=== PATIENT | female | born 1950 | race Caucasian/White ===

== ENCOUNTER → 2017-03-09 | Day surgery (SDC) | payer MEDICARE ==
[~2017-03-09] VITALS: Ht 160 cm; Wt 65.0 kg
[~2017-03-09] MED LIST: ACETAMINOPHEN 325 MG TAB PO PRN; CHLORHEXIDINE GLUCONATE 2 % 1 PACK (2 CLOTHS) TOPICAL PRN; ESTR.625 PO; FLUT1SPR5 EACH NARE; FOLI1TAB6 PO; INSULIN HUMAN REGULAR 1,000 UNITS/10 ML VIAL SQ PRN; LACTATED RINGER'S 1000 ML IV PRN; LIDOCAINE HCL 1% PF 30 ML VIAL ONE; LIDOCAINE HCL 2% JELLY 5 ML SYRINGE LEFT EYE ONE; METOPROLOL TARTRATE 25 MG TAB PO PRN; POVIDONE IODINE 5% (ANTISEPSIS KIT) 4 APPLICATIONS EACH NARE PRN; PROPARACAINE HCL 0.5% OPHT SOLN 15 ML BTL LEFT EYE ONE; SLOWTAB; SODIUM CHLORID 0.9% 500 ML IV PRN; TOBRAMYCIN/DEXAMETHASONE OPTH OINT 3.5 GM TUBE ONE; VITA100021 SL; VITA100064 PO; VITATAB11 PO
[2017-03-09 06:39] VITALS: BP 149/67; PULSE 78; RESP 20; TEMP 98; O2SAT 96
[2017-03-09] MEDS: CYCLOPENTOLATE HCL 1% OPHT SOLN 2 ML BTL LEFT EYE SCH ×4 (06:45→07:00)
[2017-03-09] MEDS: TROPICAMIDE 1% OPHT SOLN 15 ML BTL LEFT EYE SCH ×4 (06:45→07:00)
[2017-03-09] MEDS: PHENYLEPHRINE HCL 10% OPTH SOLN 5 ML BTL LEFT EYE SCH ×4 (06:45→07:00)
[2017-03-09] MEDS: FLURBIPROFEN 0.03% OPHT SOLN 2.5 ML BTL LEFT EYE SCH ×4 (06:45→07:00)
[2017-03-09 09:00] VITALS: BP 117/71; PULSE 68; RESP 16; TEMP 98; O2SAT 95
--- NOTE | 2017-03-09 10:05 | MP ---
cc: KINGS BURGOS M.D. [facility] #: [id number] DATE: 03/09/2017 PREOPERATIVE DIAGNOSIS: Visually significant cataract left eye. POSTOPERATIVE DIAGNOSIS: Visually significant cataract left eye. OPERATION: Phacoemulsification with posterior chamber lens implantation, left eye. SURGEON: Kings Burgos MD ANESTHESIA: Topical with MAC. COMPLICATIONS: None. PROCEDURE: After informed consent was obtained, the patient was brought into the operative suite and placed on appropriate monitors by the Anesthesia Service. The patient had been given dilating drops and topical lidocaine gel in the holding area. The patient's operative eye was then prepped and draped in the usual sterile fashion. A wire lid speculum was placed. Further 2% lidocaine was then dropped on the cornea prior to beginning the procedure. A paracentesis incision was made in the peripheral cornea with a 1 mm patti keratome. The anterior chamber was filled with viscoelastic. The anterior chamber was then entered through a stepped, clear corneal incision using a sharp 3 mm patti keratome. A circular tear capsulorrhexis was then made with a bent needle cystitome. Following hydrodissection of the lens nucleus with balance saline, phacoemulsification of the nucleus was performed using a modified chopping technique. The remaining cortex was removed with irrigation/aspiration. The prior two procedures were both performed using the handpieces of the [employer] phaco unit. The capsular bag was then filled with viscoelastic. The intraocular lens was then injected into the capsular bag and positioned. The type of intraocular lens and its power can be found elsewhere in this chart. The remaining viscoelastic was then removed from the anterior chamber with the IA handpiece. The anterior chamber was reformed with balanced saline. The wound was then closed securely with stromal hydration. It was found to be watertight to an intraocular pressure of at least 30 mmHg by palpation. A small amount of balanced salt solution was then removed through the paracentesis site and the intraocular pressure at the end of the case was approximately 20 by palpation. All drapes were then removed. TobraDex ointment was then placed in the eye, which was closed beneath a semi-pressure patch dressing. The patient tolerated this procedure well and left the operating room awake and alert. The patient is to follow-up in my office in the morning. ADDENDUM After the clear corneal incisions were sealed water-tight, an 8-mm limbal relaxing incision was made with a 600 micron patti blade, centered around the 80-degree meridian. MD TEZ Gomez/SSB /9:56 AM /10:08 AM
== END | disposition home or self-care (01) ==
LOC: PHSDC 06:08
PROVIDERS: ATTEND Optometrist Occupational Vision
DX: H25.12 Age-related nuclear cataract, left eye (principal)
CPT/HCPCS: 00142; 66984; J7040; V2632

== ENCOUNTER → 2017-04-23 | Day surgery (SDC) | payer MEDICARE ==
[~2017-04-23] VITALS: Ht 160 cm; Wt 65.5 kg
[~2017-04-23] MED LIST changes: +CYCLOPENTOLATE HCL 1% OPHT SOLN 2 ML BTL ONE; +FLURBIPROFEN 0.03% OPHT SOLN 2.5 ML BTL ONE; -LIDOCAINE HCL 2% JELLY 5 ML SYRINGE LEFT EYE ONE; +LIDOCAINE HCL 2% JELLY 5 ML SYRINGE ONE; +LIDOCAINE HCL 2% JELLY 5 ML SYRINGE TOPICAL ONE; +OCUVTAB PO; +PHENYLEPHRINE HCL 10% OPTH SOLN 5 ML BTL ONE; -PROPARACAINE HCL 0.5% OPHT SOLN 15 ML BTL LEFT EYE ONE; +PROPARACAINE HCL 0.5% OPHT SOLN 15 ML BTL RIGHT EYE ONE; -SLOWTAB; +SLOWTAB PO; +TROPICAMIDE 1% OPHT SOLN 15 ML BTL ONE
[2017-04-23] MEDS: CYCLOPENTOLATE HCL 1% OPHT SOLN 2 ML BTL RIGHT EYE SCH ×4 (07:35→07:50)
[2017-04-23] MEDS: PHENYLEPHRINE HCL 10% OPTH SOLN 5 ML BTL RIGHT EYE SCH ×4 (07:35→07:50)
[2017-04-23] MEDS: TROPICAMIDE 1% OPHT SOLN 15 ML BTL RIGHT EYE SCH ×4 (07:35→07:50)
[2017-04-23] MEDS: FLURBIPROFEN 0.03% OPHT SOLN 2.5 ML BTL RIGHT EYE SCH ×4 (07:35→07:50)
[2017-04-23 09:51] VITALS: TEMP 98.4
[2017-04-23 10:07] VITALS: BP 114/51; PULSE 77; RESP 16; O2SAT 97
--- NOTE | 2017-04-25 22:18 | MP ---
cc: [facility] #[id number] DATE OF SURGERY 04/23/17 POSTOPERATIVE DIAGNOSIS: Visually significant cataract right eye. OPERATION: Phacoemulsification with posterior chamber lens implantation, right eye. SURGEON: Kings Vance MD ANESTHESIA: Topical with MAC. COMPLICATIONS: None. PROCEDURE: After informed consent was obtained, the patient was brought into the operative suite and placed on appropriate monitors by the Anesthesia Service. The patient had been given dilating drops and topical lidocaine gel in the holding area. The patient's operative eye was then prepped and draped in the usual sterile fashion. A wire lid speculum was placed. Further 2% lidocaine was then dropped on the cornea prior to beginning the procedure. A paracentesis incision was made in the peripheral cornea with a 1 mm patti keratome. The anterior chamber was filled with viscoelastic. The anterior chamber was then entered through a stepped, clear corneal incision using a sharp 3 mm patti keratome. A circular tear capsulorrhexis was then made with a bent needle cystitome. Following hydrodissection of the lens nucleus with balance saline, phaco-emulsification of the nucleus was performed using a modified chopping technique. The remaining cortex was removed with irrigation/aspiration. The prior two procedures were both performed using the handpieces of the [employer] phaco unit. The capsular bag was then filled with viscoelastic. The intraocular lens was then injected into the capsular bag and positioned. The type of intraocular lens and its power can be found elsewhere in this chart. The remaining viscoelastic was then removed from the anterior chamber with the IA handpiece. The anterior chamber was reformed with balanced saline. The wound was then closed securely with stromal hydration. It was found to be watertight to an intraocular pressure of at least 30 mmHg by palpation. A small amount of balanced salt solution was then removed through the paracentesis site and the intraocular pressure at the end of the case was approximately 20 by palpation. All drapes were then removed. TobraDex ointment was then placed in the eye, which was closed beneath a semi-pressure patch dressing. The patient tolerated this procedure well and left the operating room awake and alert. The patient is to follow-up in my office in the morning. MD TEZ Gomez/ /10:43 AM /10:15 PM
== END | disposition home or self-care (01) ==
LOC: PHSDC 06:50
PROVIDERS: ATTEND Optometrist Occupational Vision
DX: H25.11 Age-related nuclear cataract, right eye (principal)
CPT/HCPCS: 00142; 66984; J7040; V2632

== ENCOUNTER → 2017-06-09 | Outpatient (CLI) | payer MEDICARE ==
[~2017-06-09] MED LIST changes: -ACETAMINOPHEN 325 MG TAB PO PRN; -CHLORHEXIDINE GLUCONATE 2 % 1 PACK (2 CLOTHS) TOPICAL PRN; -CYCLOPENTOLATE HCL 1% OPHT SOLN 2 ML BTL ONE; -FLURBIPROFEN 0.03% OPHT SOLN 2.5 ML BTL ONE; -INSULIN HUMAN REGULAR 1,000 UNITS/10 ML VIAL SQ PRN; -LACTATED RINGER'S 1000 ML IV PRN; -LIDOCAINE HCL 1% PF 30 ML VIAL ONE; -LIDOCAINE HCL 2% JELLY 5 ML SYRINGE ONE; -LIDOCAINE HCL 2% JELLY 5 ML SYRINGE TOPICAL ONE; -METOPROLOL TARTRATE 25 MG TAB PO PRN; -PHENYLEPHRINE HCL 10% OPTH SOLN 5 ML BTL ONE; -POVIDONE IODINE 5% (ANTISEPSIS KIT) 4 APPLICATIONS EACH NARE PRN; -PROPARACAINE HCL 0.5% OPHT SOLN 15 ML BTL RIGHT EYE ONE; -SODIUM CHLORID 0.9% 500 ML IV PRN; -TOBRAMYCIN/DEXAMETHASONE OPTH OINT 3.5 GM TUBE ONE; -TROPICAMIDE 1% OPHT SOLN 15 ML BTL ONE
[2017-06-09 13:16] LABS: BACTERIA, URINE RARE /hpf; BLOOD, URINE SMALL (NEG); GLUCOSE,URINE NEG (NEG); KETONE, URINE NEG (NEG); MUCUS URINE FEW /lpf (OCC); NITRITE,URINE NEG (NEG); PH, URINE 5.5 (5.0-8.5); SQUAMOUS EPITHELIAL CELL URINE 4 /hpf (0-5); URINE COLOR YELLOW (YELLW/STRAW)
[2017-06-09 13:31] LABS: BICARBONATE 29.1 MEQ/L (21.0-32.0); POTASSIUM 4.4 MEQ/L (3.5-5.1)
--- NOTE | 2017-06-10 14:22 | EKG ---
Date Performed: 06/09/2017 Time Performed: 12:49:06 PTAGE: 67 years EKG: Sinus rhythm NORMAL ECG PREVIOUS TRACING : 07/28/2008 06.31 DOCTOR: Ulises Garcia Interpretating Date/Time 06/10/2017 14:17:28
== END ==
LOC: CPRE 12:20
PROVIDERS: ATTEND Obstetrics & Gynecology
DX: Z01.810 Encounter for preprocedural cardiovascular examination (principal); N87.9 Dysplasia of cervix uteri, unspecified
CPT/HCPCS: 36415; 80048; 81001; 93005

== ENCOUNTER 2017-06-17 18:43 | Emergency (ER) | payer MEDICARE ==
[~2017-06-17] VITALS: Ht 157.5 cm; Wt 68.0 kg
[~2017-06-17 18:43] MED LIST changes: -ACETAMINOPHEN 1000 MG/100 ML 100 ML IV ONE; -APREPITANT 40 MG CAP PO SCH; -ARTIFICIAL TEARS OPTH OINT 3.5 APPLIC/3.5 GM TUBO ONE; -BUPIVACAINE HCL PF 0.25% 30 ML VIAL ONE; -CHLORHEXIDINE GLUCONATE 2 % 1 PACK (2 CLOTHS) TOPICAL PRN; -DEXAMETHASONE SOD PHOS 4 MG/ML VIAL IV ONE; -DIPH25CA PO; -DO NOT ADM ANY ANTICOAGULANT DRUGS PRN; -DOCUSATE SODIUM 100 MG CAP PO SCH; -ESMOLOL HCL 100 MG/10 ML VIAL IV ONE; -GLYCOPYRROLATE 1 MG/5 ML SYRINGE IV PUSH ONE; -IBUPROFEN 600 MG TAB PO PRN; -INSULIN HUMAN REGULAR 1,000 UNITS/10 ML VIAL SQ PRN; -KETOROLAC TROMETHAMINE 30 MG/ML (IVP) VIAL IV PUSH ONE; -LACTATED RINGER'S 1000 ML INJ 1,000 ML IV SCH; -LACTATED RINGER'S 1000 ML IV PRN; -LIDOCAINE HCL 1% PF 5 ML AMPULE OTHER ONE; -METOPROLOL TARTRATE 25 MG TAB PO PRN; -MIDAZOLAM HCL 2 MG/2 ML VIAL IV ONE; -MORPHINE SULFATE 2 MG/ML INJ IV PUSH PRN; -NEOSTIGMINE 3 MG/3 ML SYR IV ONE; -NORMOSOL R INJ 1,000 ML IV ONE; -ONDANSETRON HCL 4 MG/2 ML VIAL IV PUSH ONE; -ONDANSETRON HCL 4 MG/2 ML VIAL IVP PRN; -POVIDONE IODINE 5% (ANTISEPSIS KIT) 4 APPLICATIONS EACH NARE PRN; -PRED-503 PO; -PROPOFOL 200 MG/20 ML AMP IV ONE; -ROCURONIUM INJ 50 MG/5 ML SYRINGE IV PUSH ONE; -SODIUM CHLORID 0.9% 500 ML IV PRN; -SODIUM CHLORIDE 0.9% FLUSH 10 ML FLUSH IV FLUSH PRN; -SODIUM CHLORIDE 0.9% FLUSH 10 ML FLUSH IV FLUSH SCH; -STERILE WATER FOR INJECTION 20 ML VIAL IV ONE; -SUGAMMADEX SODIUM 200 MG/2 ML VIAL IV PUSH ONE; -VECURONIUM BROMIDE 20 MG VIAL IV ONE; -ZANT150T2 PO; -ceFAZolin 2 GM PREMIX 50 ML IV SCH; -ceFAZolin INJ 1,000 MG VIAL IV ONE; -diphenhydrAMINE HCL 25 MG CAP PO PRN; -oxyCODONE/ACETAMINOPHEN 5 MG/325 MG TAB PO PRN
[2017-06-17 18:49] VITALS: BP 128/73; PULSE 74; RESP 17; TEMP 97.7; O2SAT 96
[2017-06-17] MEDS ORDERED: SODIUM CHLOR 0.9% 1000 ML INJ 1,000 ML IV SCH (19:06)
[2017-06-17] MEDS ORDERED: SODIUM CHLORIDE 0.9% FLUSH 10 ML FLUSH IV FLUSH PRN (19:15)
[2017-06-17] MEDS ORDERED: diphenhydrAMINE HCL 50 MG/ML VIAL IVP ONE (19:15)
[2017-06-17] MEDS ORDERED: FAMOTIDINE 20 MG/2 ML VIAL IV PUSH ONE (19:15)
[2017-06-17] MEDS ORDERED: methylPREDNISolone SOD SUCC 125 MG/2 ML VIAL IV PUSH ONE (19:15)
[2017-06-17 19:18] VITALS: BP 148/78; PULSE 67; RESP 18; O2SAT 97
--- NOTE | 2017-06-17 19:29 | PD ---
HPI Chief Complaint: Edema Time Seen by Provider: 18:54 Travel History International Travel<30 days: No Contact w/Intl Traveler<30days: No Traveled to known affect area: No History of Present Illness HPI The patient is a 67-year-old female who presents to the emergency department for facial swelling in the periorbital region and mild throat swelling after undergoing general anesthesia in surgery earlier today for removal of her cervix by her gynecologic surgeon, Dr. Clarke. The patient states she had laparoscopic surgery with the DaVinci earlier today for removal of her cervix for abnormal cells. The patient thinks she may have undergone general anesthesia. The patient states she awakened and was subsequently discharged home. She then noticed that she had mild periorbital edema and mild swelling of the posterior aspect of her throat. The patient thinks that the edema around the eyes has improved since earlier today. She denies any chest pain, shortness of breath, or wheezing. The patient does have a history of allergic reactions in the past to shellfish with similar symptoms. She does note that the difficulty in the posterior oropharynx has improved. She denies any significant swelling of the neck. PFSH Past Medical History Anemia: Yes (MYELODYSPLASTIC DISORDER) Cancer: No Cardiovascular Problems: No Diabetes: No Diminished Hearing: No Endocrine: No Genitourinary: No Hepatitis: No Hiatal Hernia: No Immune Disorder: No Musculoskeletal: No Neurologic: No Psychiatric: No Reproductive: Yes (CERVIX WITH PRE CA LESION) Respiratory: No Immunizations Current: Yes Thyroid Disease: No Influenza Vaccination: Yes ?: Not Past Surgical History Abdominal Surgery: No AICD: No Body Medical Devices: PORT RT CHEST Cardiac Surgery: No Ear Surgery: No Endocrine Surgery: No Eye Surgery: Yes (BILATERAL CATARACTS - NO ANESTHESIA) Genitourinary Surgery: No Gynecologic Surgery: Yes (HYSTERECTOMY ) Hysterectomy: Yes Joint Replacement: No Oral Surgery: No Pacemaker: No Thoracic Surgery: Yes (RT CHEST PORT) Other Surgery: Yes Social History Alcohol Use: Yes (ONCE WEEKLY) Tobacco Use: No Substance Use: No Allergies-Medications (Allergen,Severity, Reaction): Coded Allergies: shellfish derived (Verified Allergy, Severe, FACIAL SWELLING, 06/17/17) Reported Meds & Prescriptions Reported Meds & Active Scripts Active Reported Jadenu (Deferasirox) 360 Mg Tab 360 Mg PO BID Ocuvite (Multiple Vitamins W/ Minerals) 1 Tab 1 Tab PO DAILY Vitamin D3 (Cholecalciferol) 1,000 Unit Tab 1,000 Units PO DAILY Vitamin B-12 (Cyanocobalamin) 1,000 Mcg Subl 1,000 Mcg SL DAILY Vitamin B Complex (B-Complex Vitamins) 1 Tab 1 Tab PO DAILY Slow-Mag (Magnesium Chloride-Calcium Carbonate) 71.5-119 Mg Tab 1 Tab PO DAILY Premarin (Estrogens Conjugated) 0.625 Mg Tab 0.625 Mg PO DAILY Folic Acid 1 Mg Tablet 1 Mg PO DAILY Review of Systems Except as stated in HPI: all other systems reviewed are Neg General / Constitutional: No: Fever HENT: Positive: Other (as noted in history of present illness) Cardiovascular: No: Chest Pain or Discomfort Respiratory: No: Shortness of Breath, Wheezing Gastrointestinal: No: Abdominal Pain Musculoskeletal: No: Edema Neurologic: Positive: Paresthesia (mild numbness to the radial aspect of the left thumb since surgery) Physical Exam Narrative GENERAL: Awake, alert, very pleasant 67-year-old female who appears her stated age and is in no acute respiratory distress. SKIN: Focused skin assessment warm/dry. HEAD: Mild periorbital edema noted with edema inferior to the orbits bilaterally. EYES: Pupils equal and round. No scleral icterus. No injection or drainage. No obvious chemosis. ENT: No nasal bleeding or discharge. Mucous membranes pink and moist. Uvula is midline, no obvious edema. No angioedema noted of the tongue, lips, or uvula. NECK: Trachea midline. No JVD. No crepitus of the neck or chest wall noted. CARDIOVASCULAR: Regular rate and rhythm. No murmur appreciated. RESPIRATORY: No accessory muscle use. Clear to auscultation. Breath sounds equal bilaterally. GASTROINTESTINAL: Abdomen soft, non-tender, nondistended. Steri-Strips in place over laparoscopic surgical wounds, no erythema or drainage noted. MUSCULOSKELETAL: No obvious deformities. No clubbing. No cyanosis. No edema. NEUROLOGICAL: Awake and alert. No obvious cranial nerve deficits. Motor grossly within normal limits. Normal speech. PSYCHIATRIC: Appropriate mood and affect; insight and judgment normal. Data Data Last Documented VS Vital Signs Date Time Temp Pulse Resp B/P (MAP) Pulse Ox O2 Delivery O2 Flow Rate FiO2 06/17/17 19:18 67 18 148/78 (101) 97 Room Air 06/17/17 18:49 97.7 Orders Orders Ecg Monitoring (06/17/17 19:06) Iv Access Insert/Monitor (06/17/17 19:06) Oximetry (06/17/17 19:06) Diphenhydramine Inj (Benadryl Inj) (06/17/17 19:15) Methylprednisolone So Succ Inj (Solumedr (06/17/17 19:15) Famotidine Inj (Pepcid Inj) (06/17/17 19:15) Sodium Chlor 0.9% 1000 Ml Inj (Ns 1000 M (06/17/17 19:06) Sodium Chloride 0.9% Flush (Ns Flush) (06/17/17 19:15) Chest, Single Ap (06/17/17 ) MDM Medical Decision Making Medical Screen Exam Complete: Yes Emergency Medical Condition: Yes Medical Record Reviewed: Yes Interpretation(s) Chest x-ray reveals the patient's [id number] is in place. No evidence of pneumothorax or pneumomediastinum. No subcutaneous air noted. Differential Diagnosis Differential diagnosis includes allergic reaction, anaphylaxis, anaphylactoid reaction, medication side effect, side effect general anesthesia, pneumothorax, pneumomediastinum. Narrative Course IV was established and the patient was placed on cardiac telemetry monitoring and continuous pulse oximetry monitoring. Chest x-ray was obtained. The patient was administered site Medrol, Benadryl, and Pepcid. A call was placed to Dr. Clarke, I had a discussion with his partner regarding her symptoms, she will text Dr. Clarke that the patient is in the emergency department. It appears the patient is having some type of allergic reaction, but chest x-ray was obtained to rule out pneumothorax/pneumomediastinum. Chest x-rays unremarkable, no evidence of pneumomediastinum or pneumothorax. The patient was reevaluated at 8:14 PM, her symptoms had improved. The patient be discharged home on prednisone, Zantac, and Benadryl. She is advised to follow- up with a primary physician and Dr. Clarke. Return if symptoms worsen or progress. Diagnosis Primary Impression: Allergic reaction Qualified Codes: T78.40XA - Allergy, unspecified, initial encounter Patient Instructions: General Instructions Additional Instructions: Medications as directed. Follow-up with your primary physician and Dr. Clarke. Cool compresses to the area of swelling as needed. Return if symptoms worsen or progress. Med/Other Pt SpecificInfo: Prescription(s) given Scripts Diphenhydramine (Diphenhydramine) 25 Mg Cap 25 MG PO Q6H Y for ALLERGIES, #20 CAP 0 Refills Prov: Tyrone Read MD 06/17/17 Ranitidine (Zantac) 150 Mg Tab 150 MG PO BID for Reduce Stomach Acid for 4 Days, #8 TAB 0 Refills Prov: Tyrone Read MD 06/17/17 Prednisone (Deltasone) 20 Mg Tab 40 MG PO DAILY for 4 Days, #8 TAB 0 Refills Prov: Tyrone Read MD 06/17/17 Disposition: 01 DISCHARGE HOME Condition: Stable Tyrone Read MD Jun 17, 2017 19:29
[2017-06-17] MEDS ORDERED: PRED-503 PO (20:17)
[2017-06-17] MEDS ORDERED: DIPH25CA PO (20:17)
[2017-06-17] MEDS ORDERED: ZANT150T2 PO (20:17)
[2017-06-17 21:14] VITALS: BP 128/60
--- NOTE | 2017-06-17 21:24 | RADRPT ---
EXAM DATE/TIME: 06/17/2017 19:21 [place] COMPARISON: No previous studies available for comparison. INDICATIONS : Possible allergic reaction post procedure. MEDICAL HISTORY : None. SURGICAL HISTORY : Port placement. ENCOUNTER: Initial ACUITY: 1 day PAIN SCORE: 0/10 LOCATION: Bilateral chest FINDINGS: Right chest port is present in good position. There is mild probable atelectasis in the lung bases. N o evidence of effusion or pneumothorax. Borderline heart size with satisfactory mediastinal contours for technique and projection. CONCLUSION: Mild bibasilar atelectasis. Jaquan Yeh MD on June 17, 2017 at 21:21 Board Certified Radiologist. This report was verified electronically.
== END 2017-06-17 21:20 | disposition home or self-care (01) ==
LOC: PHED 18:43
DX: T78.40XA Allergy, unspecified, initial encounter (principal); R22.0 Localized swelling, mass and lump, head; D64.9 Anemia, unspecified
CPT/HCPCS: 71010; 96361; 96374; 96375; 99284; J1200; J2930; J7030

== ENCOUNTER → 2017-06-17 | Day surgery (SDC) | payer MEDICARE ==
[~2017-06-17] VITALS: Ht 157.5 cm; Wt 66.1 kg
[~2017-06-17] MED LIST changes: +ACETAMINOPHEN 1000 MG/100 ML 100 ML IV ONE; +APREPITANT 40 MG CAP PO SCH; +ARTIFICIAL TEARS OPTH OINT 3.5 APPLIC/3.5 GM TUBO ONE; +BUPIVACAINE HCL PF 0.25% 30 ML VIAL ONE; +CHLORHEXIDINE GLUCONATE 2 % 1 PACK (2 CLOTHS) TOPICAL PRN; +DEFE1TAB3 PO; +DEXAMETHASONE SOD PHOS 4 MG/ML VIAL IV ONE; +DIPH25CA PO; +DO NOT ADM ANY ANTICOAGULANT DRUGS PRN; +DOCUSATE SODIUM 100 MG CAP PO SCH; +ESMOLOL HCL 100 MG/10 ML VIAL IV ONE; -FLUT1SPR5 EACH NARE; +GLYCOPYRROLATE 1 MG/5 ML SYRINGE IV PUSH ONE; +IBUPROFEN 600 MG TAB PO PRN; +INSULIN HUMAN REGULAR 1,000 UNITS/10 ML VIAL SQ PRN; +KETOROLAC TROMETHAMINE 30 MG/ML (IVP) VIAL IV PUSH ONE; +LACTATED RINGER'S 1000 ML INJ 1,000 ML IV SCH; +LACTATED RINGER'S 1000 ML IV PRN; +LIDOCAINE HCL 1% PF 5 ML AMPULE OTHER ONE; +METOPROLOL TARTRATE 25 MG TAB PO PRN; +MIDAZOLAM HCL 2 MG/2 ML VIAL IV ONE; +MORPHINE SULFATE 2 MG/ML INJ IV PUSH PRN; +NEOSTIGMINE 3 MG/3 ML SYR IV ONE; +NORMOSOL R INJ 1,000 ML IV ONE; +ONDANSETRON HCL 4 MG/2 ML VIAL IV PUSH ONE; +ONDANSETRON HCL 4 MG/2 ML VIAL IVP PRN; +POVIDONE IODINE 5% (ANTISEPSIS KIT) 4 APPLICATIONS EACH NARE PRN; +PRED-503 PO; +PROPOFOL 200 MG/20 ML AMP IV ONE; +ROCURONIUM INJ 50 MG/5 ML SYRINGE IV PUSH ONE; +SODIUM CHLORID 0.9% 500 ML IV PRN; +SODIUM CHLORIDE 0.9% FLUSH 10 ML FLUSH IV FLUSH PRN; +SODIUM CHLORIDE 0.9% FLUSH 10 ML FLUSH IV FLUSH SCH; +STERILE WATER FOR INJECTION 20 ML VIAL IV ONE; +SUGAMMADEX SODIUM 200 MG/2 ML VIAL IV PUSH ONE; +VECURONIUM BROMIDE 20 MG VIAL IV ONE; +ZANT150T2 PO; +ceFAZolin 2 GM PREMIX 50 ML IV SCH; +ceFAZolin INJ 1,000 MG VIAL IV ONE; +diphenhydrAMINE HCL 25 MG CAP PO PRN; +oxyCODONE/ACETAMINOPHEN 5 MG/325 MG TAB PO PRN
[2017-06-17 07:24] LABS: AUTOMATED NEUTROPHIL # 2.7 TH/MM3 (1.8-7.7); BASOPHIL % 0.3 % (0.0-2.0); EOSINOPHIL # 0.1 TH/MM3 (0-0.4); EOSINOPHIL % 1.5 % (0.0-4.0); HEMATOCRIT 28.4 % (35.0-46.0); HEMO FLAGS DIFF FINAL; LYMPH % 26.8 % (9.0-44.0); LYMPHOCYTE # 1.1 TH/MM3 (1.0-4.8); MEAN CELL VOLUME 84.5 FL (80.0-100.0); MEAN CORPUSCULAR HEMOGLOBIN 29.3 PG (27.0-34.0); MEAN CORPUSCULAR HGB CONC 34.7 % (32.0-36.0); MONO % 8.2 % (0.0-8.0); NEUT % 63.2 % (16.0-70.0); PLATELET COUNT 236 TH/MM3 (150-450); RED BLOOD COUNT 3.36 MIL/MM3 (4.00-5.30); RED CELL DISTRIBUTION WIDTH 18.8 % (11.6-17.2); WHITE BLOOD COUNT 4.3 TH/MM3 (4.0-11.0)
--- NOTE | 2017-06-17 14:23 | MP ---
cc: ULISES CLARKE M.D. DATE OF SURGERY: 06/17/2017 PREOPERATIVE DIAGNOSIS 1. Patient with previous hysterectomy with cervix in place, history of cervical intraepithelial neoplasia. 2. ___ severe cervical dysplasia. PROCEDURE Exam under anesthesia, operative laparoscopy with extensive lysis of adhesions, enterolysis and trachelectomy, cystourethroscopy. POSTOPERATIVE DIAGNOSIS 1. Patient with previous hysterectomy with cervix in place, history of cervical intraepithelial neoplasia. 2. ___ severe cervical dysplasia. SURGEON Ulises Clarke MD ANESTHESIA General with endotracheal intubation. ESTIMATED BLOOD LOSS 150 ccs. DRAINS Garcia to gravity. OPERATIVE FINDINGS The patient had extensive adhesions involving the omentum and portions of the rectosigmoid, presumably from previous hysterectomy. The patient's cervix was small and significant focal abnormality was visible. Cystourethroscopy demonstrated intact bladder with patency of the ureters bilaterally. INDICATIONS FOR PROCEDURE Patient with recurrent severe cervical dysplasia, previous cone biopsy was recommended for removal of her cervix. The patient was seen by Dr. Mary Pierre and referred to [place] for surgical evaluation. PROCEDURE The patient was consented for the above procedure. The patient received Ancef 1 gram prophylactically. She underwent general anesthesia with endotracheal intubation. She was carefully positioned in dorsal lithotomy position using Williams stirrups on lower extremities. She had sequentials placed for VTE prophylaxis. She was prepped and draped and a time-out was conducted and agreed by all present in the room. Garcia catheter was then inserted sterilely draining clear urine. Simple bivalve retractor was used to examine the cervix which was very small and flush with the apex of the vagina. There is no focal abnormality. The decision was to place a uterine cervical manipulator after the laparoscopy was accomplished to avoid injury to adjacent vital structures. The abdomen was examined after she was fully prepped and draped. The umbilicus was identified and no scars were evident. 0.25% plain Marcaine was injected and a Veress needle was inserted into the peritoneal cavity without complication. 2 liters of CO2 was insufflated at low pressure and then a visible port trocar using a 12 mm trocar was placed under direct vision. Upon entry significant adhesions were encountered. This necessitated placement of a access port in the left upper quadrant using a 5 mm trocar and then an 8 mm trocar on the patient's right flank. This required extensive lysis of adhesions using both cold and hot scissors and simple blunt retraction. Dissection was complicated resulting ultimately in visualization of the pelvis after meticulous methodical dissection was conducted, no injury to any adjacent bowel was noted. Bleeding was minimal. The bladder was then back-filled to identify the margins of the bladder. Once this was accomplished continued dissection of the bladder away from the cul-de-sac was accomplished. The uterine manipulator was inserted. This was a combination of a single-tooth tenaculum placed on the anterior cervical lip and then a uterine sound was placed through the remaining cervical os. Again, the cervix was markedly distorted and small. The financial assistant used counter traction during manipulation. The continued operative laparoscopy was converted to a da Vivian robot procedure and accessory port was placed on the left side and then the patient cart was side docked with a #2 on the left and #1 on the right. Monopolar scissors were attached to the #2 and bipolar fenestrated grasper in #1. The camera was inserted with good visualization. There is no collision and once this was established attention was directed to the surgeon cart where visualization of the pelvis was accomplished. Dissection of the remaining cervical stump was made by combination of sharp dissection and use of monopolar cautery through the monopolar scissors. The cervix was then excised and then brought through the vaginal opening. A #2 Stratafix suture was then introduced by the financial assistant through the vaginal cuff, then closing the vaginal cuff in a linear fashion with good result. Integrity of the closure was tested by a sponge stick by the financial assistant. The suture ends were trimmed at the flush with the surface of the peritoneum and suture needles was secured. No active bleeding was noted. At this point the da Vivian robot portion was completed and then attention was directed back to straight laparoscopy where the suture needles were removed. The pelvis was irrigated with copious normal saline and observed for any bleeding. There is no active bleeding, no hematoma. The pelvis was covered with a piece of Interceed. The bladder was intact after draining the back fill from the bladder which is sterile saline. The umbilical port was then closed with a crossbow with a #1 Vicryl suture with good result and then the remaining trocars were evaluated off pressure, again no complication was incurred and then once the pneumoperitoneum was completely deflated the trocars were removed. The incisions were closed with a subcuticular stitch of 4-0 Monocryl, Steri-Strips and Band-Aids. Cystourethroscopy was performed using the 5 mm laparoscope backfilling the bladder with sterile saline, examining the bladder it was intact, both ureteral orifices were peristalsing and jetting vigorous urine through the orifice into the bladder lumen. No bleeding was incurred. At this point the cystourethroscopy was complete. The Garcia catheter was reinserted draining clear urine. Inspection of vaginal cuff was dry, no active bleeding. At the end of the case the final count was correct. The patient was stable. She was taken to the recovery room on room air. MD EMILY Turpin/TLL /12:52 PM /1:36 PM
[2017-06-17 14:30] VITALS: BP 120/53; PULSE 54; RESP 18; TEMP 97.6; O2SAT 96
== END | disposition home or self-care (01) ==
LOC: HSDC 05:44
PROVIDERS: ATTEND Obstetrics & Gynecology
DX: D06.9 Carcinoma in situ of cervix, unspecified (principal); N89.9 Noninflammatory disorder of vagina, unspecified; Z90.711 Acquired absence of uterus with remaining cervical stump; N73.6 Female pelvic peritoneal adhesions (postinfective)
CPT/HCPCS: 00840; 57530; 58660; 85025; 88307; C1765; J0131; J0690; J1100; J1885; J2250; J2405; J2710; J3010; J7120; J8501; 88305

== ENCOUNTER 2017-08-29 17:22 | Emergency (ER) | payer MEDICARE ==
[~2017-08-29] VITALS: Ht 160 cm; Wt 62.9 kg
[~2017-08-29 17:22] MED LIST changes: +DIPH25CA PO; +PRED-503 PO; +ZANT150T2 PO
[2017-08-29 17:38] VITALS: PULSE 103; RESP 16; TEMP 98.4; O2SAT 99
[2017-08-29] MEDS ORDERED: LIDOCAINE HCL 5% OINT 37 GM TUBE TOPICAL ONE (18:15)
[2017-08-29] MEDS ORDERED: MIRA3350 PO (19:09)
--- NOTE | 2017-08-29 19:09 | PD ---
HPI Chief Complaint: GI Complaint Time Seen by Provider: 17:49 Travel History International Travel<30 days: No Contact w/Intl Traveler<30days: No Traveled to known affect area: No History of Present Illness HPI This is a 67-year-old female who presents to the emergency department feeling like she has a firm ball of stool in her rectum, constant, severe, associated with some lower abdominal cramping. She went to an urgent care earlier today and was given magnesium citrate which she took. Since then she's had loose stool from her rectum but she continues to feel a lot of cramping and feels an obstruction at the rectum itself. She denies any fevers or chills and any vomiting. PFSH Past Medical History Anemia: Yes (MYELODYSPLASTIC DISORDER) Cancer: No Cardiovascular Problems: No Diabetes: No Diminished Hearing: No Endocrine: No Genitourinary: No Hepatitis: No Hiatal Hernia: No Immune Disorder: No Medical other: No Musculoskeletal: No Neurologic: No Psychiatric: No Reproductive: Yes (CERVIX WITH PRE CA LESION) Respiratory: No Immunizations Current: Yes Thyroid Disease: No Tetanus Vaccination: > 5 Years Influenza Vaccination: Yes ?: Not Past Surgical History Abdominal Surgery: No AICD: No Body Medical Devices: PORT RT CHEST Cardiac Surgery: No Ear Surgery: No Endocrine Surgery: No Eye Surgery: Yes (BILATERAL CATARACTS - NO ANESTHESIA) Genitourinary Surgery: No Gynecologic Surgery: Yes (HYSTERECTOMY, CERVIX REMOVAL) Hysterectomy: Yes Joint Replacement: No Neurologic Surgery: No Oral Surgery: No Pacemaker: No Thoracic Surgery: Yes (RT CHEST PORT) Other Surgery: Yes Social History Alcohol Use: Yes (ONCE WEEKLY) Tobacco Use: No Substance Use: No Allergies-Medications (Allergen,Severity, Reaction): Coded Allergies: shellfish derived (Verified Allergy, Severe, FACIAL SWELLING, 08/29/17) Reported Meds & Prescriptions Reported Meds & Active Scripts Active Reported Jadenu (Deferasirox) 360 Mg Tab 360 Mg PO BID Ocuvite (Multiple Vitamins W/ Minerals) 1 Tab 1 Tab PO DAILY Vitamin D3 (Cholecalciferol) 1,000 Unit Tab 1,000 Units PO DAILY Vitamin B-12 (Cyanocobalamin) 1,000 Mcg Subl 1,000 Mcg SL DAILY Vitamin B Complex (B-Complex Vitamins) 1 Tab 1 Tab PO DAILY Slow-Mag (Magnesium Chloride-Calcium Carbonate) 71.5-119 Mg Tab 1 Tab PO DAILY Premarin (Estrogens Conjugated) 0.625 Mg Tab 0.625 Mg PO DAILY Folic Acid 1 Mg Tablet 1 Mg PO DAILY Review of Systems Except as stated in HPI: all other systems reviewed are Neg Physical Exam Narrative GENERAL:Well appearing, no acute distress SKIN: Focused skin assessment warm and dry. HEAD: Atraumatic. Normocephalic. EYES: Pupils equal and round. No injection or drainage. ENT: Moist mucous membranes NECK: Trachea midline. CARDIOVASCULAR: Regular rate and rhythm. No murmur appreciated. RESPIRATORY: Clear to auscultation. Breath sounds equal bilaterally. GASTROINTESTINAL: Abdomen soft, mildly tender to palpation in the lower abdomen with no rebound or guarding. Excoriation of the rectal area. Firm fecal mass in the rectal vault. MUSCULOSKELETAL: No obvious deformities. NEUROLOGICAL: Awake and alert. No obvious cranial nerve deficits. Moving all extremities. PSYCHIATRIC: Appropriate mood and affect; insight and judgment normal. Data Data Last Documented VS Vital Signs Date Time Temp Pulse Resp B/P (MAP) Pulse Ox O2 Delivery O2 Flow Rate FiO2 08/29/17 17:38 98.4 103 16 99 Orders Orders Lidocaine 5% Oint (Xylocaine 5% Oint) (08/29/17 18:15) MDM Medical Decision Making Medical Screen Exam Complete: Yes Emergency Medical Condition: Yes Interpretation(s) Afebrile, tachycardic Differential Diagnosis Fecal impaction, bowel obstruction, external hemorrhoids, internal hemorrhoids Narrative Course This is a 67-year-old female who presents to the emergency department with the sensation of a fecal impaction at the rectum. She has some lower abdominal cramping. She took magnesium citrate earlier today. I performed a manual disimpaction twice in the emergency department. She feels much better and feels like the impaction has resolved. She is able to have a bowel movement spontaneously. I think the patient can be discharged home. She was advised on increasing her dietary fiber, taking MiraLAX, and using a sitz bath as needed for comfort. Patient will be discharged home. Diagnosis Primary Impression: Fecal impaction Patient Instructions: General Instructions Additional Instructions: If you develop severe or worsening abdominal pain, fever>100.4, persistent vomiting or inability to eat or drink return to the emergency department immediately. Follow up with your primary care physician in 1-2 days as needed. Med/Other Pt SpecificInfo: Prescription(s) given Scripts Polyethylene Glycol 3350 Powder (Miralax Powder) 17 Gm Powd 17 GM PO DAILY for Constipation, #1 CAN 0 Refills Mix and dissolve one measuring cap-ful (17 grams) in water or juice. Prov: Roro Alvarado MD 08/29/17 Disposition: 01 DISCHARGE HOME Condition: Stable Roro Alvarado MD Aug 29, 2017 19:09
== END 2017-08-29 19:24 | disposition home or self-care (01) ==
LOC: PHED 17:22
DX: K56.41 Fecal impaction (principal)
CPT/HCPCS: 99283